=== PATIENT | male | born 1955 | race Caucasian/White ===

== ENCOUNTER 2022-07-31 06:15 | Emergency (ER) | payer BC, MEDICARE, OTHER ==
[2022-07-31] MEDS ORDERED: Lidocaine 1% with EPINEPHrine 1:100,000 10 ML MDV INJECT ONE (07:00)
[2022-07-31] MEDS ORDERED: Lidocaine 1% with EPINEPHrine 1:100,000 10 ML MDV ONE (07:00)
== END 2022-07-31 07:35 | disposition home or self-care (01) ==
LOC: KA.ED 06:15
DX: A63.0 Anogenital (venereal) warts (principal); S31.801A Laceration without foreign body of unspecified buttock, initial encounter; I48.91 Unspecified atrial fibrillation; Z79.01 Long term (current) use of anticoagulants
CPT/HCPCS: 12001; 99283

== ENCOUNTER 2022-08-04 10:53 | Emergency (ER) | payer SELFPAY ==
[2022-08-04] MEDS ORDERED: Sodium Chloride 0.9% 10 ML Syringe FLUSH PRN (11:06)
[2022-08-04] MEDS ORDERED: Sodium Chloride 0.9% 1,000 ML IV ONE ×2 (11:07→12:22)
[2022-08-04 11:17] LABS: BASOPHILS ABSOLUTE AUTO 0.03 10^3/uL (0.00-0.10); BASOPHILS PERCENT AUTO 0.4 % (0.0-1.0); EOSINOPHILS ABSOLUTE AUTO 0.24 10^3/uL (0.10-0.30); EOSINOPHILS PERCENT AUTO 3.1 % (1.0-3.0); HEMATOCRIT 31.3 % (40.0-52.0); IMMATURE GRAN ABSOLUTE AUTO 0.02 10^3/uL (0.00-0.50); IMMATURE GRAN PERCENT AUTO 0.3 % (0.0-5.0); LYMPHOCYTES ABSOLUTE AUTO 1.21 10^3/uL (1.00-4.00); LYMPHOCYTES PERCENT AUTO 15.7 % (20.0-40.0); MEAN CORPUSCULAR HEMOGLOBIN 31.3 pg (27.0-31.0); MEAN CORPUSCULAR HGB CONC 31.9 g/dL (32.0-36.0); MEAN CORPUSCULAR VOLUME 98.1 fL (82.0-92.0); MEAN PLATELET VOLUME 10.1 fL (7.4-10.4); MONOCYTES ABSOLUTE AUTO 0.62 10^3/uL (0.10-0.80); NEUTROPHILS PERCENT AUTO 72.5 % (50.0-70.0); PLATELET COUNT,PLT 169 10^3/uL (150-400); RED BLOOD CELL COUNT 3.19 10^6/uL (4.50-6.00); RED CELL DISTRIBUTION WIDTH 16.5 % (11.5-14.5); WHITE BLOOD CELL COUNT,WBC 7.72 10^3/uL (5.00-10.00)
[2022-08-04] MEDS ORDERED: Iopamidol 755 Mg/ML 100 ML Bottle IV ONE (11:59)
[2022-08-04] MEDS ORDERED: Sodium Chloride 0.9% 50 ML IV SCH (12:00)
[2022-08-04 12:08] LABS: CALCIUM IONIZED,POC 1.01 mmol/L (4.6-5.3); CREATININE,POC 3.79 mg/dL (0.51-1.19); POTASSIUM,POC 5.4 mmol/L (3.5-4.5)
[2022-08-04] MEDS ORDERED: Sodium Chloride 0.9% 1,000 ML ONE (12:23)
[2022-08-04 12:42] LABS: ALANINE AMINOTRANSFERASE,ALT 22 U/L (14-63); ALBUMIN 3.14 g/dL (3.40-5.00); ALKALINE PHOSPHATASE 77 U/L (46-116); ASPARTATE AMNIOTRANSFERASE,AST 27 U/L (15-37); CALCIUM 7.6 mg/dL (8.7-10.3); PROTEIN TOTAL,TP 6.3 g/dL (6.4-8.2)
== END 2022-08-04 13:10 ==
LOC: KA.ED 10:53
DX: S09.90XA Unspecified injury of head, initial encounter (principal); S37.009A Unspecified injury of unspecified kidney, initial encounter; S30.1XXA Contusion of abdominal wall, initial encounter; I95.9 Hypotension, unspecified; E86.1 Hypovolemia; E78.5 Hyperlipidemia, unspecified; I48.91 Unspecified atrial fibrillation; I11.0 Hypertensive heart disease with heart failure; I50.9 Heart failure, unspecified; E66.01 Morbid (severe) obesity due to excess calories; Z79.82 Long term (current) use of aspirin; Z79.899 Other long term (current) drug therapy; Z68.43 Body mass index [BMI] 50.0-59.9, adult; W10.8XXA Fall (on) (from) other stairs and steps, initial encounter
CPT/HCPCS: 36415; 70450; 71250; 74176; 80047; 80053; 85025; 96360; 96361; 99284; 99285-25; J7030